=== PATIENT | male | born 1965 | race Native Hawaiian/Other Pacific Islander ===

== ENCOUNTER 2024-07-10 13:26 | Observation (INO) ==
[2024-07-10 15:26] LABS: ABS Basophils 0.1 10^3/uL (0.0-0.1); ABS Eosinophils 0.1 10^3/uL (0.0-0.5); ABS Lymphocytes 1.1 10^3/uL (1.0-4.8); ABS Monocytes 1.2 10^3/uL (0.0-1.1); ABS Neutrophils 9.7 10^3/uL (1.5-7.6); Eosinophil % 1.1 %; Hematocrit 28.7 % (38-53); Lymphocyte % 9.3 %; Mean Corpuscular Hemoglobin 24.1 pg (27-33); Mean Corpuscular Hgb Conc 31.3 g/dL (31-36); Mean Platelet Volume 7.9 fL (7.5-11.2); Platelet Count 342 10^3/uL (150-450); Red Blood Count 3.73 10^6/uL (4.06-5.63); Red Cell Distribution Width 19.9 % (12-17); White Blood Count 12.1 10^3/uL (3.6-10.2)
[2024-07-10 15:33] LABS: INR 2.13 (0.85-1.14)
[2024-07-10 15:50] LABS: Albumin/Globulin Ratio 1.9 (1-3); Calcium 9.5 mg/dL (8.6-10.3); Creatinine, Serum 1.64 mg/dL (0.67-1.17); Globulin 2.1 g/dL (2-4); Magnesium 1.7 mg/dL (1.9-2.7); Potassium 4.3 mmol/L (3.5-5.0); Total Bilirubin 0.3 mg/dL (0.2-1.0); Total Protein 6.1 g/dL (6.4-8.9); eGFR CKD-EPI 47.6 (>60)
[2024-07-10] MEDS: Lactated Ringers 1000 ml BAG 1,000 ML IV ONE ×2 (16:50→22:11)
[2024-07-10] MEDS: Magnesium Sulfate 2 gm BAG 2 GM/50 ML BAG IVPB ONE ×2 (18:14→22:11)
[2024-07-10] MEDS: Acetaminophen IV 1 GM/100ML 1,000 MG/100 ML BAG IV ONE (18:25)
[2024-07-10] MEDS ORDERED: Sulfur Hexaflouride MICROSPHR 25 MG VIAL IV PRN (21:05)
[2024-07-10] MEDS ORDERED: Albuterol/Ipratropium NEB.SOL (2.5/0.5 MG) 3 ML NEB.SOLN INH PRN (21:12)
[2024-07-10] MEDS ORDERED: Dextrose 50% Syringe 50 ml 25 GM/50 ML SYRINGE IV PUSH PRN (21:15)
[2024-07-10 21:26] LABS: C Reactive Protein 5.55 mg/L (<8.01)
[2024-07-10] MEDS ORDERED: Albuterol/Ipratropium NEB.SOL (2.5/0.5 MG) 3 ML NEB.SOLN INH SCH (22:00)
[2024-07-10] MEDS: methylPREDNISolone SOD SUCC 125 mg 2 ML VIAL IV ONE (22:07)
[2024-07-10] MEDS: Pantoprazole VIAL 40 MG VIAL IV SCH (22:10)
[2024-07-11] MEDS: Lactated Ringers 1000 ml BAG 1,000 ML IV SCH (00:21)
[2024-07-11] MEDS: Morphine 2 MG/ML SYRINGE IV ONE (00:21)
[2024-07-11 00:49] LABS: Urine Appearance Clear; Urine Bilirubin Negative (Negative); Urine Blood Negative (Negative); Urine Color Colorless; Urine Glucose 3+ (>=300 mg/dL) (Negative); Urine Ketones Negative (Negative); Urine Nitrite Negative (Negative); Urine Protein Negative (Negative); Urine Specific Gravity 1.012 (1.002-1.030); Urine Urobilinogen Negative (Negative)
[2024-07-11 05:49] LABS: Hematocrit 27.1 % (38-53); Hemoglobin 8.4 g/dL (13.2-16.3); Mean Corpuscular Hemoglobin 23.7 pg (27-33); Mean Corpuscular Hgb Conc 31.1 g/dL (31-36); Mean Corpuscular Volume 76.2 fL (80-97); Mean Platelet Volume 7.9 fL (7.5-11.2); Platelet Count 341 10^3/uL (150-450); Red Blood Count 3.56 10^6/uL (4.06-5.63); Red Cell Distribution Width 20.3 % (12-17); White Blood Count 7.7 10^3/uL (3.6-10.2)
[2024-07-11] MEDS: Enoxaparin 40 MG/0.4 ML SYR SUBCUT SCH (05:52)
[2024-07-11] MEDS: methylPREDNISolone SOD SUCC 40 mg/ml 1 ml VIAL IV SCH (05:52)
[2024-07-11 06:25] LABS: Calcium 8.9 mg/dL (8.6-10.3); Creatinine, Serum 0.95 mg/dL (0.67-1.17); Magnesium 3.4 mg/dL (1.9-2.7); Potassium 5.3 mmol/L (3.5-5.0); eGFR CKD-EPI 91.6 (>60)
[2024-07-11 08:24] LABS: Folate 15.1 ng/mL (5.90-24.80)
[2024-07-11] MEDS: Nicotine PATCH 7 MG/24 HR PATCH TRANSDERM SCH (10:22)
[2024-07-11] MEDS: Cyanocobalamin INJ 1,000 MCG/ML VIAL 1 ML VIAL IM ONE (12:27)
[2024-07-11] MEDS: Lidocaine PATCH 5% PATCH TRANSDERM SCH (12:31)
[2024-07-11 12:49] VITALS: BP 132/68
[2024-07-12] MEDS ORDERED: Albuterol/Ipratropium NEB.SOL (2.5/0.5 MG) 3 ML NEB.SOLN INH SCH (07:00)
[2024-07-13 22:00] LABS: Calprotectin <50.0 mcg/g
== END 2024-07-11 13:59 | disposition home or self-care (01) ==
LOC: EDHOLD 13:26 → ED 13:26 → EDHOLD 14:20 → SUATTDRO 18:58
PROVIDERS: ADMIT Student in an Organized Health Care Education/Training Program; ATTEND Internal Medicine